=== PATIENT | male | born 1950 | race Caucasian/White ===

== ENCOUNTER 2017-01-02 10:57 | Inpatient (IN) | payer OTHER, MEDICARE ==
[~2017-01-02] VITALS: Ht 190.5 cm; Wt 128.0 kg
--- NOTE | ~2017-01-02 | FD ---
ADMIT: 01/02/2017 RM/LOC: 430 [facility] MR#: [id number] [id number] [address] JOSE ANTONIO BERG [address] [place] [address] Final Diagnosis SEX: M AGE: 66 : 1950 ADMISSION DATE: 01/02/2017 DISCHARGE DATE: 01/06/2017 FINAL DIAGNOSES: 1. Acute sepsis secondary to Streptococcus pneumoniae. 2. Community acquired pneumonia, Strep pneumonia, right middle lobe. 3. Hypotension. 4. History of lymphoma. 5. Gastroesophageal reflux. 6. Chronic pancytopenia. 7. Acute kidney injury secondary to sepsis and prerenal, resolved. 8. Left lower lobe pulmonary nodule, chronic. Oscar Sarmiento MD/ modl JOB #: [id number] CC: Oscar Sarmiento MD, Attending Physician Oscar Sarmiento MD, Family Physician
--- NOTE | ~2017-01-02 | ECH ---
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 Summary Technically adequate exam. The estimated left ventricular ejection fraction is 60-65%. Mild biatrial enlargement. Mild tricuspid regurgitation by color Doppler. There is moderate pulmonary hypertension. The pulmonary pressure (RVSP) is 48 mmHg. The ascending aorta appears mildly dilated. The maximum diameter measures 3.6 cm. Procedure Type of Study TTE procedure:Echo Complete SF. Procedure Date Date: 01/04/2017 Start: 07:41 AM Technical Quality: Adequate visualization Indications:Hypotension and Ventricular Tachycardia. Additional Indications:Bacteremia Appropriate Use Criteria: 9 Height: 75 inches Weight: 266 pounds BSA: 2.48 m Rhythm: Within normal limits HR: 71 bpm BP: 129/69 mmHg M-Mode/2D Measurements LV Diastolic Dimension: 5.65 cm LV Systolic Dimension: 3.56 cm LV Septum Diastolic: 0.84 cm LV PW Diastolic: 0.79 cm AO Root Dimension: 3.2 cm Cardiac Output: 7.74 l/min LA Dimension: 4.14 cm Cardiac Index: 3.12 l/min*m RV Diastolic Dimension: 3.95 cm LA volume index: 39 ml/m LVOT: 2.35 cm LVOT VTI: 25.16 cm RV Base: 3.9 cm LV Stroke volume: 109.07 ml RV Mid: 2.6 cm LV Stroke volume index: 43.98 ml/m TAPSE: 2.5 cm TDI-S': 15 cm/s Doppler Measurements AV Peak Velocity: 1.3 m/s MV Peak E-Wave: 0.83 m/s AV Peak Gradient: 6.76 mmHg MV Peak A-Wave: 0.67 m/s AV Mean Gradient: 3.53 mmHg MV E/A Ratio: 1.23 LVOT Peak Velocity: 1.15 m/s MV P1/2t: 48.5 msec AV Area (Continuity):4.27 cm MV Deceleration Time: 190.6 msec TR Velocity:3.26 m/s MV Area (PHT): 4.54 cm TR Gradient:42.51 mmHg PV Peak Velocity: 0.95 m/s Estimated RAP:5 mmHg PV Peak Gradient: 3.59 mmHg Estimated RVSP: 48 mmHg Estimated PASP: 47.51 mmHg E' Septal Velocity: 0.07 m/s A' Septal Velocity: 0.11 m/s E' Lateral Velocity: 0.12 m/s A' Lateral Velocity: 0.07 m/s RA Area: 21.66 cm Findings Left Ventricle Normal left ventricle size and function. Diastolic assessment reveals normal relaxation. Right Ventricle Normal right ventricle structure and function. Left Atrium The left atrium is mildly dilated by LA volume index measurement. Right Atrium The right atrium is mildly dilated. Mitral Valve Normal mitral valve structure and function. Trivial mitral regurgitation by color Doppler. Aortic Valve Normal aortic valve structure and function. Tricuspid Valve Normal tricuspid valve structure and function. Mild tricuspid regurgitation by color Doppler. There is moderate pulmonary hypertension. The pulmonary pressure (RVSP) is 48 mmHg. Pulmonic Valve Normal pulmonic valve structure and function. Trivial pulmonic valve regurgitation by color Doppler. Pericardial Effusion No evidence of pericardial effusion. Miscellaneous The ascending aorta appears mildly dilated. The maximum diameter measures 3.6 cm. Pleural Effusion No evidence of pleural effusion. Contractility Score LV regional wall motion:(0-Non visualized 1-Normal 2-Hypokinesis 3-Akinesis 4-Dyskinesis 5-Aneurysm) Signature
[~2017-01-02 10:57] MED LIST: ACETAMINOPHEN325 MG PO; LASIX DPS20 MG PO; LEVAQUIN DPS500 MG PO; OXY IR DPS5 MG PO; VIBRAMYCIN-DPS100 M2 PO
--- NOTE | 2017-01-05 11:04 | HP ---
ADMIT: 01/02/2017 RM/LOC: 315 [facility] MR#: [id number] [address] [address] JOSE ANTONIO BERG [address] [place] [address] History and Physical SEX: M AGE: 66 : 1950 DATE OF SERVICE: CHIEF COMPLAINT: Shakiness, fevers, fatigue. HISTORY OF PRESENT ILLNESS: The patient is a 66-year-old gentleman from [place], usually taken care by Dr. Sarmiento, who started having shakes with a temp of 103 yesterday. He also notes a runny nose and cough. He had one bowel movement yesterday. He denies any headache or neck pain. Does have a history of a lymphoma, but it has been six years since he had chemotherapy. They said he was around somebody with URI like symptoms earlier in the week. He has no other concerns at this time. PAST MEDICAL HISTORY: 1. Hyperlipidemia. 2. GERD. 3. B-cell lymphoma. 4. Obesity. 5. Pancytopenia. 6. Cellulitis. PAST SURGICAL HISTORY: Shoulder surgery and pleural drainage. ALLERGIES: PENICILLIN. MEDICATIONS: None. FAMILY HISTORY: Hypertension and lung cancer. REVIEW OF SYSTEMS: He notes fevers, cough, some runny nose. Denies chest pain, shortness of breath, headache. Denies any vomiting, numbness, tingling, melena, or vision changes. SOCIAL HISTORY: He denies tobacco, alcohol, or drug use. , with children. 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 PHYSICAL EXAMINATION: VITAL SIGNS: Blood pressure 88/40, pulse 89, temp is 100.9, O2 sats 90%. GENERAL: He is alert, awake, but drowsy. HEART: Regular rate and rhythm. LUNGS: Diminished at the bases. Some left-sided rhonchi. ABDOMEN: Soft, nontender. EXTREMITIES: No clubbing, cyanosis, or edema. No significant erythema. NEUROLOGIC: Cranial nerves II through XII are grossly intact. No focal, motor, ADMIT: 01/02/2017 RM/LOC: 315 [facility] MR#: [id number] [id number] [address] FRANCISCO JGUEVARA JOSE ANTONIO [place] [id number] History and Physical SEX: M AGE: 66 : 1950 or sensory deficits. However, he is drowsy and fatigued. ASSESSMENT: A 66-year-old male: 1. Sepsis. 2. Hypotension. 3. History of lymphoma. 4. Upper respiratory infection. 5. Gastroesophageal reflux disease. PLAN: We will admit him to the hospital. Check labs. Give IV fluids. Chest x- ray, UA, blood cultures, routine sepsis protocol, blood work, check his cardiac enzymes. Put him on vanc and Merrem. Desmond Hu MD/ aviva JOB #: [id number] CC: Patricio Yousif MD, Attending Physician Oscar Sarmiento MD, Family Physician
--- NOTE | 2017-01-08 09:52 | CO ---
ADMIT: 01/02/2017 RM/LOC: 430 [facility] MR#: [id number] [id number] [address] [place] [address] Consultation SEX: M AGE: 66 : 1950 DATE OF CONSULTATION: 01/04/2017 ATTENDING PHYSICIAN: Oscar Sarmiento MD CONSULTING PHYSICIAN: Charisse Wells MD REASON FOR CONSULTATION: 1. Pancytopenia. 2. History of diffuse large B-cell lymphoma, in remission. 3. Lung lesion. HISTORY OF PRESENT ILLNESS: Mr. Berg is a 66-year-old pleasant gentleman, a patient of my colleague Dr. Junior, was admitted to the hospital because of the pneumonia and sepsis. The patient is treated with antibiotics. Oncology was consulted because of the new lung lesions as well as severe anemia. He does have a history of diffuse large B-cell lymphoma back in 2008, for which he got the treatment and chemotherapy, in complete remission. After the chemotherapy, he did have low pancytopenia because of the chemotherapy. He was following up with Dr. Junior periodically, and he is in remission from the lymphoma. Now, he got admitted because of the fever, infection, pneumonia, and sepsis, on antibiotics. The condition is getting better. On the CT scan that was done on January 02, 2017, he was found to have extensive pneumonia in the right lower lobe in the lateral segment of the right middle lobe. There was also 1 cm nodule in the left lower lobe in the costophrenic angle, that nodule was 1 cm, it was not very clear what it was. The patient denies any nausea or vomiting. He was a little bit tired because of the hospitalizations. Otherwise, no abdominal pain. No shortness of breath when I saw him. PAST MEDICAL HISTORY: History of diffuse large B-cell lymphoma, status post chemotherapy back in 2008, in complete remission. Obesity, pancytopenia post chemotherapy, hyperlipidemia. ALLERGIES: HE IS ALLERGIC TO PENICILLIN. MEDICATIONS: He is getting antibiotics, also on high blood pressure. Please review the medication list for completion. FAMILY HISTORY: History of lung cancer and high blood pressure in the family. SOCIAL HISTORY: Currently not a smoker nor a drinker. No illicit IV drug use. REVIEW OF SYSTEMS: GENERAL: No shortness of breath. Not in acute distress. RESPIRATORY: No shortness of breath. CARDIOVASCULAR: No chest pain. ENDOCRINOLOGIC: No polyuria, no polydipsia. GASTROINTESTINAL: No nausea. No vomiting. No diarrhea. INFECTION: No fever. NUTRITION: Adequate. ADMIT: 01/02/2017 RM/LOC: 430 [facility] MR#: [id number] [id number] [address] [place] [address] Consultation SEX: M AGE: 66 : 1950 SKIN: No rash. MUSCULOSKELETAL: No pain. PHYSICAL EXAMINATION: VITAL SIGNS: Temperature 97.9, pulse 69, respirations 24, and blood pressure 154/84. HEENT: Normocephalic and atraumatic. LUNGS: Clear. HEART: S1 and S2 heard. Regular rate and rhythm. ABDOMEN: Soft, nontender, nondistended. Positive bowel sounds. EXTREMITIES: No edema. SKIN: No rash. NEUROLOGICAL: Awake, alert, and oriented x3. No focal neurological deficit. LABORATORY DATA: WBCs 5.6, hemoglobin 7.3, and platelet 100. Normal kidney and normal LFTs, CT scan finding noted. IMPRESSION AND RECOMMENDATIONS: Mr. Berg is a 66-year-old pleasant gentleman, a patient of my colleague, Dr. Junior, who was admitted to the hospital due to pneumonia and sepsis, on antibiotics. He does have a history of diffuse large B-cell lymphoma, status post chemotherapy back in 2008, in complete remission. Oncology consulted for new lung lesions as well as severe anemia. 1. Left lower lobe new lung lesion, 1 cm in size. Unknown at this point of time. He probably will need to follow that lesions or PET-CT scan as an outpatient to further evaluate that lesion. He may need to get the recovered from the pneumonia before the PET scan is ordered. I have talked to the patient and his as a possible outpatient followup of his lung nodules when he is discharged and when he will see Dr. Junior. 2. Pancytopenia with severe anemia. Hemoglobin count of 7.3, these are post chemotherapy and also because of the infection and sepsis, once his infection recovered probably his hemoglobin count will improve. We will continue to follow up count. If his count does not recover in the future, he may need bone marrow biopsy to further evaluate the bone marrow ADMIT: 01/02/2017 RM/LOC: 430 [facility] MR#: [id number] [place] [id number] JOSE ANTONIO BERG [address] [place] [address] [place] [address] Consultation SEX: M AGE: 66 : 1950 status. 3. Diffuse large B-cell lymphoma, in remission. No signs of recurrence. 4. Pneumonia and sepsis, on antibiotic per MD. Continue antibiotic. Continue supportive care. Continue to follow up and monitor CBC tomorrow. I have reviewed all the medical records and the blood labs. I have spent 55 minutes of my time, more than 50% of the time was spent in reviewing the chart, discussing with the patient about the test needed to be done, about the lung nodules, his prognosis, and his importance of followup, and about the bone marrow biopsy. Thank you for the consultation and opportunity in taking care of the patient. I will follow the patient with you. Charisse Wells MD/ aviva JOB #: [id number] CC: Oscar Sarmiento MD, Attending Physician Oscar Sarmiento MD, Family Physician
--- NOTE | 2017-02-08 07:48 | DS ---
ADMIT: 01/02/2017 RM/LOC: 430 [facility] MR#: [id number] [address] [address] [place] [address] General Discharge Summary SEX: M AGE: 66 : 1950 ADMISSION DATE: 01/02/2017 DISCHARGE DATE: 01/06/2017 FINAL DIAGNOSES: 1. Acute sepsis secondary to Streptococcus pneumoniae. 2. Community acquired pneumonia, Strep pneumonia, right middle lobe. 3. Hypotension. 4. History of lymphoma. 5. Gastroesophageal reflux. 6. Chronic pancytopenia. 7. Acute kidney injury secondary to sepsis and prerenal, resolved. 8. Left lower lobe pulmonary nodule, chronic. 9. Obesity 10. Chronic Edema CONSULTATIONS: Dr. Wells with Heme-Oncology. REASON FOR ADMISSION: Please refer to dictated H and P by Dr. Desmond Hu. Briefly, the patient is a 66-year-old gentleman who lives in [place], presented to the clinic with complaints of increasing confusion, fevers, chills etc. The patient was found to be septic and sent over to the hospital for further workup management. The patient admitted to the ICU. HOSPITAL COURSE: The patient admitted to ICU, started on sepsis protocol. Fluid resuscitation as well as broad-spectrum antibiotics were initiated. In the first 24 hours, the patient improved tremendously. The patient did have 2/2 blood cultures showing Strep pneumoniae. Chest x-rays were also consistent with pneumonia, right side, community-acquired. Antibiotics were then tailored. Patient did have some hemoptysis initially, but this improved with treatment course. After 48 hrs of culture free blood cultures, it was felt that the patient could discharge safely on home treatments and antibiotics. He was not requiring oxygen on discharge. There were no other major events during the hospitalization. Jose Antonio was much improved on day of discharge and in stable condition. Discharge Medications: Refer to hospital records Discharge Instructions: It was recommended to follow up with Dr. Sarmiento in 1 week, and with Heme/Onc as scheduled. Take medications as prescribed. Follow up sooner if worsening conditions. Greater than 35 minutes was spent in discharge activities, including greater than 25 minutes of [id number] interaction. Oscar Sarmiento MD/ aviva JOB #: [id number] CC: Oscar Sarmiento MD, Attending Physician Oscar Sarmiento MD, Family Physician
== END 2017-01-06 10:12 | disposition home or self-care (01) | DRG 871 ==
LOC: 3ICU 10:57 → 4PCU 10:57 → 3ICU 01-04 09:23 → 4PCU 01-05 06:58
PROVIDERS: ADMIT Family Medicine
DX: A40.3 Sepsis due to Streptococcus pneumoniae (principal); J13 Pneumonia due to Streptococcus pneumoniae; D61.818 Other pancytopenia; R09.02 Hypoxemia; E78.5 Hyperlipidemia, unspecified; R91.1 Solitary pulmonary nodule; K21.9 Gastro-esophageal reflux disease without esophagitis; Z68.33 Body mass index [BMI] 33.0-33.9, adult; E66.9 Obesity, unspecified; Z85.72 Personal history of non-Hodgkin lymphomas

== ENCOUNTER → 2017-02-19 | Outpatient (CLI) | payer OTHER | END | disposition home or self-care (01) | LOC: RAD.S 13:42 | DX: K11.3 Abscess of salivary gland (principal) ==